=== PATIENT | male | born 1985 | race African-American/Black ===

== ENCOUNTER 2018-04-09 21:09 | Emergency (ER) | payer MEDICAID, OTHER ==
[~2018-04-09] VITALS: Ht 172.7 cm; Wt 83.9 kg
--- NOTE | 2018-04-09 21:20 | NUR ---
PT PRESENTED TO THE ER WITH A C/O RT EAR PAIN AND JAW PAIN X 2 WKS. PT STATED THAT HE JUST FINISHED ANTIBIOTICS AND FEELS THE EAR IS WORSE. PT AMBULATED TO ER 18 AND IS AWAITING EVAL.
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
[2018-04-09] MEDS ORDERED: PIPERACILLIN /TAZOBACTAM 3.375 G VIAL IV ONE ×2 (21:46→22:04)
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
--- NOTE | 2018-04-09 21:49 | NUR ---
18G IV STARTED IN RAC. BLOOD WAS DRAWN AND SENT TO LAB.
[2018-04-09] MEDS ORDERED: IV NS 0.9% 250 ML IV ONE (21:51)
[2018-04-09] MEDS ORDERED: CT SWABBABLE VALVE TRANS SET 1 EA INFUS.SET MC ONE (21:51)
[2018-04-09] MEDS ORDERED: IOHEXOL-300 100 ML VIAL IV ONE (21:51)
[2018-04-09] MEDS ORDERED: HYDROMORPHONE 1 MG/1 ML DISP.SYRIN ONE ×2 (21:55→23:59)
[2018-04-09] MEDS ORDERED: ONDANSETRON HCL/PF 4 MG/2 ML VIAL ONE (21:55)
[2018-04-09 21:58] LABS: BASOPHILS # (AUTO) 0.1 /CMM (0.0-0.2); EOSINOPHILS % (AUTO) 2.7 % (0.0-6.0); HEMATOCRIT 43 % (39-51); HEMOGLOBIN 14.2 g/dL (13.5-17.5); LYMPHOCYTES # (AUTO) 2.4 /CMM (0.8-4.8); LYMPHOCYTES % (AUTO) 36.3 % (20.0-44.0); MEAN CORPUSCULAR HGB CONC 33 g/dl (31.0-36.0); MEAN CORPUSCULAR VOLUME 86 fL (80-96); MONOCYTES # (AUTO) 0.5 /CMM (0.1-1.30); MONOCYTES % (AUTO) 7.3 % (2.0-12.0); NEUTROPHILS # (AUTO) 3.5 /CMM (1.8-8.9); NEUTROPHILS % (AUTO) 52.7 % (43.0-81.0); PLATELET COUNT (AUTO) 229 /CMM (150-450); WHITE BLOOD COUNT (AUTO) 6.6 K/uL (4.3-11.0)
[2018-04-09] MEDS ORDERED: HYDROMORPHONE 1 MG/1 ML DISP.SYRIN IV ONE (22:00)
[2018-04-09] MEDS ORDERED: ONDANSETRON HCL/PF 4 MG/2 ML VIAL IV ONE (22:00)
[2018-04-09] MEDS ORDERED: IV NS 0.9% 1,000 ML BAG IV ONE (22:00)
[2018-04-09] MEDS ORDERED: PIPERACILLIN /TAZOBACTAM 3.375 G in IV D5W 50 ML IV ONE (22:00)
[2018-04-09 22:05] LABS: CREATININE 1.2 mg/dL (0.6-1.3); POTASSIUM 4.4 mmol/L (3.5-5.1)
[2018-04-09 22:11] LABS: ALBUMIN 3.9 g/dL (3.4-5.0); BILIRUBIN,DIRECT 0.1 mg/dL (0.0-0.2); BILIRUBIN,TOTAL 0.3 mg/dL (0.2-1.0); TOTAL PROTEIN, SERUM 7.1 g/dL (6.4-8.2)
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
[2018-04-10] MEDS ORDERED: HYDROMORPHONE 1 MG/1 ML DISP.SYRIN IV ONE
--- NOTE | 2018-04-10 00:20 | NUR ---
PT ACCEPTED BY DR HARTLEY AT [facility], ROOM 120-A. # FOR REPORT [phone]. TRANSPORT AUTH: [id number]
[2018-04-10 00:21] VITALS: BP 133/87
--- NOTE | 2018-04-10 00:24 | NUR ---
[facility] CALLED FOR TRANSPORT. ETA 90 MIN. TRIP# [id number]
--- NOTE | 2018-04-10 00:32 | NUR ---
REPORT GIVEN TO NURSING HOOKER LASTER, AVTAR AT [facility].
--- NOTE | 2018-04-10 01:48 | NUR ---
[facility] EMT'S ARRIVED. PT IS BEING TRANSPORTED TO [facility]. VSS.
== END 2018-04-10 01:48 ==
LOC: ER 21:13
DX: H60.311 Diffuse otitis externa, right ear (principal); H70.91 Unspecified mastoiditis, right ear
CPT/HCPCS: 36415; 70460; 80048; 80076; 83605; 85025; 85652; 85730; 86140; 87040 ×2; 87070; 96365; 96375; 96376; 99285; A4606; J1170 ×2; J2405; J2543 ×3; J7030; J7050; J7060; Q9967; 87186-TC

== ENCOUNTER 2022-07-15 10:31 | Emergency (ER) | payer MEDICAID, OTHER ==
[~2022-07-15] VITALS: Ht 175.3 cm; Wt 83.9 kg
--- NOTE | 2022-07-15 10:40 | NUR ---
REceived pt 37 yrs male waling in from home c/o pain on RT BIG TOE FOR 3 DAY
--- NOTE | 2022-07-15 10:40 | NUR ---
Felipe lu in ED - 07/15/22 at 1120 by JOSUE RECEIVED PT 37 YRS MALE C/O PAIN ON LT BIG TOE SHANNON
--- NOTE | 2022-07-15 10:45 | NUR ---
SWALLEN NO REDNESS
[2022-07-15 10:53] VITALS: BP 140/89
--- NOTE | 2022-07-15 11:20 | NUR ---
SEEN BY DR. DAILY
--- NOTE | 2022-07-15 11:27 | NUR ---
CXRAY DONE AT BED SIDE
--- NOTE | 2022-07-15 12:12 | NUR ---
body tap done by ED TACH
--- NOTE | 2022-07-15 12:18 | NUR ---
Patient discharged to home in stable condition. Written and verbal after care instructions given. Patient verbalizes understanding of instruction.
== END 2022-07-15 12:45 | disposition home or self-care (01) ==
LOC: ER 10:48
DX: S92.424A Nondisplaced fracture of distal phalanx of right great toe, initial encounter for closed fracture (principal); Z60.2 Problems related to living alone; W22.8XXA Striking against or struck by other objects, initial encounter; Y93.89 Activity, other specified; Y92.89 Other specified places as the place of occurrence of the external cause; Y99.8 Other external cause status
CPT/HCPCS: 73660-TC